=== PATIENT | female | born 1940 | race Caucasian/White ===

== ENCOUNTER 2021-02-10 22:03 | Emergency (ER) | payer MEDICARE, OTHER ==
[2021-02-10 23:01] LABS: BASOPHIL 0.6 % (0-2); EOSINOPHIL 1.6 % (0-7); HCT 43.7 % (37.0-47.0); LYMPHOCYTE 35.7 % (15-48); MCH 28.2 pg (25.0-31.0); MCV 88.1 fL (78.0-100.0); MPV 8.9 fL (6.0-9.5); NEUTROPHIL 52.9 % (41-80); NRBC 0; PLT 288 K/uL (150-400); RBC 4.96 M/uL (4.20-5.40); RDW 12.8 % (11.5-14.0); WBC 4.9 K/uL (4.0-10.5)
[2021-02-10 23:14] LABS: PROTHROMBIN TIME 12.6 SECONDS (11.8-13.4)
[2021-02-10 23:15] LABS: PTT 30.9 SECONDS (24.4-34.7)
== END 2021-02-10 23:35 | disposition home or self-care (01) ==
LOC: FER 22:03
PROVIDERS: Emergency Medicine Emergency Medical Services
DX: R04.0 Epistaxis (principal); I10 Essential (primary) hypertension; Z88.0 Allergy status to penicillin; Z91.040 Latex allergy status
CPT/HCPCS: 36415; 85025; 85610; 85730; 99283